=== PATIENT | female | born 1990 | race Caucasian/White ===

== ENCOUNTER 2018-04-21 15:13 | Outpatient (CLI) | payer MEDICAID ==
--- NOTE | 2018-04-21 16:58 | ULT ---
PELVIC ULTRASOUND 04/21/18 HISTORY: Positive , unknown dates. FINDINGS: The uterus measures 9.5 cm x 4.6 cm x 4.9 cm and does demonstrate a normal sonographic appearance. En dovaginal imaging does demonstrate a fluid collection within the endometrial canal. No gestational sa c or pole is visualized at this time to suggest an intrauterine gestation. Mean sac diameter me asures 0.5 cm which would be consistent with gestational age of 5 weeks and 2 days. Findings may be r elated to early intrauterine gestation with nonvisualization of pole and yolk sac. Followup ult rasound examination in one week is recommended. There is a Nabothian cyst seen in the cervix. The right ovary measures 2.8 cm x 2.5 cm x 2.1 cm with the left ovary measuring 2.7 cm x 1.4 cm x 1.9 cm. A 1.2 cm anechoic cystic structure is seen in the right ovary probably related to dominant folli cles/cysts. Doppler evaluation of each ovary with spectral analysis and color flow evaluation demonstrates arteri al flow in each ovary. Small amount of free fluid is seen in the cul-de-sac. IMPRESSION: 1. Fluid collection in the endometrial canal. No pole or yolk sac is visualized. This coul d potentially represent an early intrauterine gestation and mean sac diameter would correspond to a g estational age of 5 weeks and 2 days. Pseudogestational sac related to ectopic cannot be ex cluded based on sonographic evaluation. Follow up serial beta HCG levels as well as pelvic ultrasoun d are recommended. 2. Small amount of free fluid in the pelvis. POS: RYDER
== END 2018-04-21 15:14 | disposition home or self-care (01) ==
LOC: SCSULT 15:13
PROVIDERS: ATTEND Family Medicine
DX: Z34.90 Encounter for supervision of normal pregnancy, unspecified, unspecified trimester (principal); Z34.91 Encounter for supervision of normal pregnancy, unspecified, first trimester; Z3A.01 Less than 8 weeks gestation of pregnancy
CPT/HCPCS: 36415; 76856; 84144; 84443; 84702; 85025; 86762; 86780; 86850; 86900; 86901; 87086; 87340; 87389

== ENCOUNTER 2018-05-21 13:46 | Emergency (ER) | payer OTHER ==
[2018-05-21] MEDS ORDERED: Ondansetron HCl/PF 4 MG/2 ML Vial ONE (14:15)
[2018-05-21] MEDS ORDERED: Dicyclomine 20 MG TAB ONE (14:15)
[2018-05-21 14:18] LABS: #Basophils 0.1 thou/uL (0.0-0.2); #Eosinphils 0.2 thou/uL (0.0-0.7); #Lymphocytes 1.7 thou/uL (1.20-3.40); #Monocytes 0.8 thou/uL (0.11-0.59); #Neutrophils 4.6 thou/uL (1.40-6.50); %Basophils 0.7 % (0.0-1.0); %Eosinophils 3.3 % (0.0-10.0); %Lymphocytes 22.5 % (21.0-51.0); %Monocytes 10.8 % (0.0-10.0); %Neutrophils 62.6 % (42.0-75.0); Hemoglobin 13.1 g/dL (12.0-16.0); Mean Corpuscular HGB CONC 33.8 g/dL (32.0-36.0); Mean Corpuscular Hemoglobin 30.9 pg (27.0-31.0); Mean Corpuscular Volume 91.5 fL (78.0-98.0); Platelet Count 219 thou/uL (130-400); RBC Distribution Width 11.8 % (11.5-14.5); Red Blood Cell (RBC) Count 4.24 mill/uL (4.20-5.40); White Blood Cell (WBC) Count 7.4 thou/uL (4.8-10.8)
[2018-05-21 14:34] LABS: Bilirubin Negative (Negative); Blood, Urine Negative (Negative); Clarity CLOUDY (Clear); Glucose, Urine (Dipstick) Negative (Negative); Leukocyte Small (Negative); Nitrite Negative (Negative); Protein, Urine (Dipstick) Negative (Neg-Trace); Specific Gravity, Urine 1.013 (1.002-1.036); pH, Urine 6.5 (5.0-9.0)
[2018-05-21 14:35] LABS: Pregnancy Test - Urine (BHCG) POSITIVE (Negative); Pregu Control Background? CLEAR/WHITE (CLR/WHITE); Pregu Control Bar Appear? YES (CONTROL BAR); Specific Gravity 1.013 (1.002-1.036)
[2018-05-21 14:36] LABS: Bacteria/HPF 1+ HPF (None Seen); Hyaline Casts/LPF 0-3 HYALINE CAST LPF (0-3 Hyaline); Pathc Cast-AUWi Flag 0.58 (0-2.49); RBC/HPF 0-3 HPF (0-3)
[2018-05-21 14:41] LABS: ALT (SGPT) 39 U/L (8-55); AST (SGOT) 27 U/L (5-34); Albumin 3.8 g/dL (3.5-5.0); Alkaline Phosphatase 110 U/L (40-150); Anion Gap 13 mmol/L (10-20); BUN (Urea Nitrogen) 5 mg/dL (7.0-18.7); Bilirubin, Total 0.4 mg/dL (0.2-1.2); Calc. Creatinine Clearance 0 mL/min (70-130); Calcium 8.6 mg/dL (7.8-10.44); Carbon Dioxide 23 mmol/L (22-29); Chloride 105 mmol/L (98-107); Estimated GFR-MDRD Greater than 90; Globulin 3.2 g/dL (2.4-3.5); Glucose 108 mg/dL (70-105); Lipase 15 U/L (8-78); Potassium 3.5 mmol/L (3.5-5.1); Sodium 137 mmol/L (136-145)
--- NOTE | 2018-05-21 15:24 | ULT ---
RIGHT UPPER QUADRANT ULTRASOUND: Date: 05/21/18 HISTORY: Epigastric pain, nausea, and vomiting. FINDINGS: The liver, kidneys, gallbladder, and visualized portions of the pancreas (tail not satisfactorily vis ualized due to overlying bowel gas) appear normal. The common duct measures 2.0 mm in diameter. No fr ee fluid is seen in Morison's pouch. IMPRESSION: Unremarkable exam. POS: RYDER
== END 2018-05-21 15:08 | disposition home or self-care (01) ==
LOC: ERS 13:46
DX: R10.10 Upper abdominal pain, unspecified (principal); R11.2 Nausea with vomiting, unspecified; F41.9 Anxiety disorder, unspecified; F31.9 Bipolar disorder, unspecified; Z79.899 Other long term (current) drug therapy
CPT/HCPCS: 76705; 80053; 81003; 81015; 81025; 83690; 84702; 85025; 87086; 96361; 96374; J2405

== ENCOUNTER 2018-07-30 12:18 | Emergency (ER) | payer OTHER | END 2018-07-30 13:59 | disposition home or self-care (01) | LOC: ERS 12:18 | DX: O99.89 Other specified diseases and conditions complicating pregnancy, childbirth and the puerperium (principal); R09.81 Nasal congestion; O99.340 Other mental disorders complicating pregnancy, unspecified trimester; F31.9 Bipolar disorder, unspecified; F41.9 Anxiety disorder, unspecified; Z91.048 Other nonmedicinal substance allergy status | CPT/HCPCS: 99283 ==

== ENCOUNTER 2018-10-23 09:39 | Outpatient (CLI) | payer OTHER ==
--- NOTE | 2018-10-23 12:12 | ULT ---
ULTRASOUND ABDOMEN: HISTORY: Abdominal pain. COMPARISON: Gallbladder ultrasound 05/21/2018. FINDINGS: Visualized portion of the pancreas, aorta, and IVC unremarkable. Hepatic echotexture is normal. The echotexture of the liver is normal. No intrahepatic or extrahepatic biliary dilatation. The gal lbladder is normal. No pericholecystic fluid. The portal vein is patent with antegrade flow. The common bile duct measures 4 mm, normal. The live r measures 17.2 cm in length. The right kidney measures 10.9 x 4 x 4.9 cm without mass, hydronephros is, or abnormal calcifications. The left kidney measures 12.3 x 5.4 x 5.1 cm without mass, hydroneph rosis, or abnormal calcifications. The spleen measures 10.4 cm in length. IMPRESSION: Normal exam. POS: RYDER
== END 2018-10-23 09:40 | disposition home or self-care (01) ==
LOC: ULT 09:39
PROVIDERS: ATTEND Family Medicine
DX: R10.9 Unspecified abdominal pain (principal)
CPT/HCPCS: 36415; 76700; 80053; 82239; 83690; 85025

== ENCOUNTER 2018-10-29 07:53 | Day surgery (SDC) | payer OTHER ==
[2018-10-29 08:34] VITALS: BP 116/68; TEMP 98.1
[2018-10-29 08:36] VITALS: BMI 39.2
[2018-10-29] MEDS ORDERED: Mag-Al 1200 mg/1200 mg/30 ML UDCUP PO PRN (09:14)
--- NOTE | 2018-10-29 10:20 | PRG ---
DATE OF SERVICE: 10/29/2018 PRESENTING COMPLAINT: Heartburn, decreased movement at 32 weeks. HISTORY OF PRESENT ILLNESS: Ms. Schroeder is a 28-year-old 4, para 3, at 32 weeks by stated ALOK. She reports that she had decreased movement last night. She denies contractions. She denies rupture of membranes. She states she has had problems with reflux for the entire , it was somewhat worse last night. 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 The patient reports one was at 33 weeks' gestation and required corticosteroids, the others were term. She denies receiving [place] during this . She denies complications of this . Antepartum records not available. PAST MEDICAL HISTORY: Bipolar. PAST SURGICAL HISTORY: Shoulder. ALLERGIES: DENIES. MEDICATIONS: vitamins and Seroquel. SOCIAL HISTORY: Denies tobacco, alcohol, or IV drug abuse. FAMILY HISTORY: Noncontributory. REVIEW OF SYSTEMS: Noncontributory. PHYSICAL EXAMINATION: GENERAL: White female, resting comfortably, in no acute distress. VITAL SIGNS: Pulse 87, respirations 18, blood pressure 118/72, temperature 98.6. HEENT: Within normal limits. LUNGS: Clear to auscultation bilaterally. HEART: Regular rate and rhythm. ABDOMEN: Soft and nontender. There is no palpable mass and really no guarding. PELVIC: Vulva is without lesions externally. Vaginal exam is deferred. Fundal height is 32 cm. EXTREMITIES: No clubbing, cyanosis, or edema. MUSCULOSKELETAL: No CVA tenderness is noted. heart rate tracing was carried out for approximately 20 to 30 minutes which revealed a category 1 strip, positive accelerations, no decelerations, and positive movement was noted by the patient. IMPRESSION: 1. Gastroesophageal reflux in the 3rd trimester. 2. Decreased movement, now resolved. PLAN: 1. Maalox 30 mL p.o. x1. 2. The patient to follow up. Discussed PPI with Dr. Polanco in her office. 3. Discharge home. ER precautions. Job ID: [id number]
== END 2018-10-29 10:19 | disposition home or self-care (01) ==
LOC: L&D/OP 07:53
PROVIDERS: ATTEND Family Medicine
DX: O36.8130 Decreased fetal movements, third trimester, not applicable or unspecified (principal); O99.613 Diseases of the digestive system complicating pregnancy, third trimester; K21.9 Gastro-esophageal reflux disease without esophagitis; O99.343 Other mental disorders complicating pregnancy, third trimester; F31.9 Bipolar disorder, unspecified; Z3A.32 32 weeks gestation of pregnancy; Z79.899 Other long term (current) drug therapy
CPT/HCPCS: 99282

== ENCOUNTER 2018-11-17 22:58 | Day surgery (SDC) | payer OTHER ==
--- NOTE | 2018-11-17 23:07 | PDOC.FPROB ---
FMR OB H&P: HPI - History of Present Illness Chief Complaint: Contractions Indentification: 28 year old History of Present Illness: 28 year old at 34.6 wks by stated ALOK presents with contractions for the past few weeks. Patient states they have been fairly consistent during that time. She describes them as a tightening of her abdomen associated with vaginal pressure. Patient states the contractions got stronger today, which prompted her visit to L&D. Patient endorses urinary hesitancy and dysuria. She denies vaginal bleeding, vaginal discharge, or LoF. Patient denies fever or chills. She states she drinks about 4 water bottles per day. Primary Care Physician: Dr. 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 - Surgical History Sx History: Shoulder surgery - Social History Social History: Denies tobacco, alcohol, or drug use - Family History Family History: Noncontributory FMR OB H&P: Medications - Current Home Medications: Medication Instructions Recorded Confirmed Type Vitamin 1 tablet PO DAILY 10/29/18 11/17/18 History QUEtiapine Fumarate [Seroquel] 50 mg PO DAILY 10/29/18 11/17/18 History Allergies/Adverse Reactions: Allergies Allergy/AdvReac Type Severity Reaction Status Date / Time codeine Allergy Verified 11/17/18 23:20 FMR OB H&P: ROS - Review of Systems General: denies: fever/chills, weight/appetite/sleep changes Eyes: denies: vision changes, scotomas ENT: denies: nasal congestion, rhinorrhea, sore throat Cardiovascular: denies: chest pain, palpitation, edema Respiratory: denies: cough, congestion, shortness of breath Gastrointestinal: denies: abdominal pain, nausea, vomiting, diarrhea Genitourinary (Female): reports: dysuria, polyuria, hesitancy, contractions, vaginal pressure. denies: vaginal discharge, vaginal bleeding Musculoskeletal: denies: pain, stiffness Neurologic: denies: numbness, syncope, seizures Integumentary: denies: itching, rash Hematologic/Lymphatic: denies: prolonged or excessive bleeding Psychological: reports: depression. denies: anxiety FMR OB H&P: Vital Signs - Maternal Vital signs: BP 127/80 Pulse 83 Afebrile - Heart Tones Baseline: 140 Variability: moderate Acceleration: present Deceleration: absent Category: category 1 [place] contractions every: Irregular FMR OB H&P: Physical Exam - Physical Exam General: NAD, awake, alert and oriented HEENT: MMM, grossly normal vision Heart: RRR, pulses present, no edema General: CTAB, no respiratory distress Abdomen: soft, gravid, non-tender Musculoskeletal: pulses present, FROM in all four extremities Neurological: no tremor, no focal deficit Skin: no rash, capillary refill <2 seconds Lymphatic: no unusual bruising or bleeding Psychiatric: intact recent and remote memory, good judgement and insight - Pelvic Exam Vulva: normal hair distribution SVE: By nurse closed/50/-1 FMR OB H&P: A/P - Problem List (1) Intrauterine Status: Acute Code(s): Z34.90 - ENCNTR FOR SUPRVSN OF NORMAL , UNSP, UNSP TRIMESTER (2) Uterine contractions Status: Acute Code(s): DRF7326 - (3) Third trimester Status: Acute Code(s): Z34.93 - ENCNTR FOR SUPRVSN OF NORMAL PREG, UNSP, THIRD TRIMESTER Disposition: 28 year old at 34.6 wks presents with contractions 1. sIUP with contractions - at 34.6 wks - Will monitor FHT's; Category I strip - Cervical check: closed/50/-1 by nurse - UA pending - PO hydration - Irregular contractions with uterine irritability 2. Hx of PTD at 33 wks - IOL for oligohydramnios 3. Bipolar disorder - On Seroquel qhs Dispo: Pending results of UA and PO hydration. Cervix closed. Irregular contractions. Does not appear to be in labor at this time. Discussion: Date/Time: 11/17/18 5296 This H&P was discussed with Dr. Caldera who agrees with the above documentation and plan. Signature: Nathalie De La Rosa DO PGY-2 Addendum - Attending - Attending Attestation Date/Time: 11/19/18 0114 I personally evaluated the patient and discussed the management with Dr. De La Rosa I agree with the History, Examination, Assessment and Plan documented above with any addition or exceptions noted below.
[2018-11-17 23:26] VITALS: BP 127/80; TEMP 98; BMI 39.9
[2018-11-18 00:24] LABS: Bilirubin Negative (Negative); Blood, Urine Negative (Negative); Clarity CLEAR (Clear); Glucose, Urine (Dipstick) Negative (Negative); Leukocyte Negative (Negative); Nitrite Negative (Negative); Protein, Urine (Dipstick) Negative (Neg-Trace); Specific Gravity, Urine 1.027 (1.002-1.036); pH, Urine 6.5 (5.0-9.0)
[2018-11-18 00:26] LABS: Bacteria/HPF None Seen HPF (None Seen); Hyaline Casts/LPF 7-10 HYALINE CAST LPF (0-3 Hyaline); Pathc Cast-AUWi Flag 1.08 (0-2.49); RBC/HPF 0-3 HPF (0-3); Squamous Epithelial 0-3 HPF (0-3); WBC/HPF 0-3 HPF (0-3)
[2018-11-18 00:43] LABS: Renal Epithelial None Seen HPF (0-3); Transitional Epithelial NONE SEEN HPF (0-3)
[2018-11-18 00:49] LABS: Urine Culture Reflex No No
--- NOTE | 2018-11-18 01:02 | PDOC.EVN ---
Event Note - Event Note Event Note: 11/18/2018 a 1:00 AM UA negative. Uterine irritability has decreased since PO hydration. Encouraged patient to drink appx 64 oz of water per day. Patient mentioned she has reflux just prior to d/c. Advised patient she could take tums and follow with Dr. Polanco as previously discussed at prior visit to L&D for further treatment. Plan to d/ c patient home with return precautions. Nathalie De La Rosa, DO PGY-2
== END 2018-11-18 01:12 | disposition home or self-care (01) ==
LOC: L&D/OP 22:58
PROVIDERS: ATTEND Family Medicine
DX: O47.03 False labor before 37 completed weeks of gestation, third trimester (principal); O41.03X0 Oligohydramnios, third trimester, not applicable or unspecified; O99.343 Other mental disorders complicating pregnancy, third trimester; F31.9 Bipolar disorder, unspecified; Z3A.34 34 weeks gestation of pregnancy; Z79.899 Other long term (current) drug therapy
CPT/HCPCS: 51701; 81001; 99283

== ENCOUNTER 2018-12-18 05:30 | Inpatient (IN) | payer OTHER ==
[2018-12-18 06:05] VITALS: BMI 41.1
[2018-12-18] MEDS ORDERED: Acetaminophen 500 MG TAB PO PRN (06:21)
[2018-12-18] MEDS ORDERED: Butorphanol Tartrate 1 MG/ML VIAL SLOW IVP PRN (06:21)
[2018-12-18] MEDS ORDERED: NS w/ Oxytocin 10 units 500 ML IV SCH ×4 (06:30→07:30)
[2018-12-18] MEDS ORDERED: Lidocaine 1% (PF) 30 ML VIAL SC PRN ×2 (06:30→07:30)
[2018-12-18] MEDS ORDERED: Penicillin G Potassium 5 MILL.UNITS in Sodium Chloride 0.9% 100 ML IVPB SCH (06:30)
[2018-12-18] MEDS ORDERED: Ibuprofen 800 MG TAB PO PRN (06:30)
[2018-12-18] MEDS ORDERED: Misoprostol 200 MCG TAB RC PRN ×2 (06:30→07:30)
[2018-12-18] MEDS ORDERED: Methylergonovine 0.2 MG/ML VIAL IM PRN ×2 (06:30→07:30)
[2018-12-18] MEDS: Lactated Ringer's 1,000 ML IV SCH ×2 (06:51→08:46)
[2018-12-18 06:57] LABS: Hemoglobin 12.3 g/dL (12.0-16.0); Mean Corpuscular HGB CONC 33.8 g/dL (32.0-36.0); Mean Corpuscular Volume 88.6 fL (78.0-98.0); Mean Platelet Volume 10.7 fL (7.4-10.4); Platelet Count 192 thou/uL (130-400); RBC Distribution Width 12.7 % (11.5-14.5); White Blood Cell (WBC) Count 9.5 thou/uL (4.8-10.8)
[2018-12-18] MEDS ORDERED: Fentanyl 4 mcg/Bup 0.1% Cadd 100 ML ONE (07:28)
[2018-12-18] MEDS ORDERED: NS / Oxytocin 40 units/1000ml 1,000 ML IV SCH ×2 (07:30→14:00)
[2018-12-18 07:37] LABS: HBSAg Index 0.31 S/CO (0-0.99); Hep B Surf Ag Non-Reactive S/CO (NonReactive); Syphilis Antibody Nonreactive (Nonreactive); Syphilis Antibody Index 0.03 S/CO (<1.00 Non-Reactive)
[2018-12-18] MEDS ORDERED: Naloxone HCl 0.4 mg/ml Vial IVP PRN ×2 (08:00→08:07)
[2018-12-18] MEDS ORDERED: ePHEDrine/0.9% NaCl/PF SYRINGE 50 mg/10 ml SLOW IVP PRN (08:00)
[2018-12-18] MEDS ORDERED: Communication Order-Pharmacy FS SCH (08:00)
[2018-12-18] MEDS ORDERED: Ondansetron PF 4 MG/2 ML Vial IVP PRN (08:00)
[2018-12-18] MEDS ORDERED: Eucerin (Mineral Oil/Petrolatum,White) 30 gm Jar TOP PRN (08:07)
[2018-12-18] MEDS ORDERED: Lactated Ringer's 500 ML IV PRN (08:07)
[2018-12-18] MEDS ORDERED: diphenhydrAMINE 50 MG/ML VIAL IVP PRN (08:07)
[2018-12-18] MEDS ORDERED: Acetaminophen 325 MG TAB PO PRN (08:07)
[2018-12-18] MEDS ORDERED: Promethazine HCl 25 MG/ML VIAL IM PRN (08:07)
[2018-12-18] MEDS ORDERED: Fentanyl 4 mcg/Bupivacaine 0.1% Cassette 100 ML EPIDURAL SCH (08:15)
[2018-12-18] MEDS ORDERED: Penicillin G 2.5 MILL.units 2.5 MILL.UNITS in Premix Bag 1 BAG IVPB SCH (11:00)
[2018-12-18] MEDS ORDERED: HYDROcodone/Acetaminophen 5/325 mg Tablet PO PRN (13:54)
[2018-12-18] MEDS ORDERED: Lanolin Ointment 7 GM TUBE TOP PRN (13:54)
[2018-12-18] MEDS ORDERED: Preparation H Ointment 28 GM TUBE PR PRN (13:54)
[2018-12-18] MEDS ORDERED: Milk Of Magnesia 30 ML UDCUP PO PRN (13:54)
[2018-12-18] MEDS ORDERED: Bisacodyl 10 MG SUPP PR PRN (13:54)
[2018-12-18] MEDS: Ibuprofen 800 MG TAB PO SCH ×2 (14:58→22:04)
[2018-12-18] MEDS: Ferrous Sulfate 325 MG TAB PO SCH (17:31)
[2018-12-18] MEDS ORDERED: Ondansetron ODT 4 MG TAB PO PRN (18:14)
[2018-12-18] MEDS ORDERED: Ondansetron PF 4 MG/2 ML Vial SLOW IVP PRN (18:14)
--- NOTE | 2018-12-18 18:24 | OP ---
DATE OF PROCEDURE: 12/18/2018 DATE OF DELIVERY: 12/18/2018. PREOPERATIVE DIAGNOSES: Term intrauterine and elective induction of labor at term. POSTOPERATIVE DIAGNOSES: Term intrauterine and elective induction of labor at term. PROCEDURE PERFORMED: Normal spontaneous vaginal delivery. ANESTHESIA: Epidural. BRIEF DELIVERY SUMMARY: This is a 28-year-old G4, now P4, who presented for induction of labor. She received Pitocin this morning and responded very well. She progressed quickly to delivery to complete and pushing. She delivered a live female infant head away. Mouth and nares were bulb suctioned at the perineum. There was a loose nuchal cord x1; however, shoulders and body rapidly followed and so was unable to be reduced prior to delivery. The baby was then disentangled from the cord. 's Apgars were 8 at 1 minute and 9 at 5 minutes. Cord blood was collected and sent for analysis. Placenta delivered spontaneously and intact with a 3-vessel umbilical cord. Uterine fundus was firm following evacuation of the placenta. Cervix, vagina, and perineum were inspected for lacerations and there were none to be found. Mom and baby were left with the nurse in excellent condition. Mom is planning to bottle-feed. Job ID: [id number]
[2018-12-18] MEDS ORDERED: traMADol HCl 50 MG TAB PO PRN (21:19)
[2018-12-18] MEDS: Docusate Calcium (SURFAK) 240 MG CAP PO SCH (22:05)
[2018-12-19] MEDS: Ibuprofen 800 MG TAB PO SCH ×3 (05:35→21:17)
[2018-12-19] MEDS: Ferrous Sulfate 325 MG TAB PO SCH ×2 (07:29→17:10)
[2018-12-19] MEDS ORDERED: Adacel (T-DAP) 0.5 ML SYRINGE IM ONE (09:00)
[2018-12-19] MEDS ORDERED: Measles/Mumps/Rubella 10 MCG/0.5 ML VIAL SC ONE (09:00)
[2018-12-19] MEDS: Prenatal Vitamin 1 TAB PO SCH (09:20)
[2018-12-19] MEDS: Docusate Calcium (SURFAK) 240 MG CAP PO SCH ×2 (09:20→21:17)
--- NOTE | 2018-12-19 14:58 | PDOC.PP ---
Post Progress Note Post Day #: 1 Subjective: Doing well, PP day #1, feeling well. Bottlefeeding. PO intake tolerated: yes Flatus: yes Ambulation: yes Vital Signs (12 hours) Temp Pulse Resp BP Pulse Ox 12/19/18 11:46 97.8 F 80 20 122/75 12/19/18 08:00 97.6 F 76 20 131/73 97 12/19/18 05:30 97.6 F 92 20 116/77 Weight Weight 218 lb - Physical Examination General: NAD Cardiovascular: no m/r/g, RRR Respiratory: clear to auscultation bilaterally, non-labored breathing Abdominal: + bowel sounds, lochia, no distention, appropriately TTP Psychiatric: A&Ox3, normal affect Result Diagrams: 12/18/18 06:44 Additional Labs: Post Labs Blood Type A POSITIVE 12/18/18 06:44 Hep Bs Antigen Non-Reactive S/CO (NonReactive) 12/18/18 06:44 (1) Vaginal delivery Code(s): O80 - ENCOUNTER FOR FULL-TERM UNCOMPLICATED DELIVERY Status: Acute - Assessment/Plan Routine PP care D/C tomorrow
[2018-12-20] MEDS: Ibuprofen 800 MG TAB PO SCH (06:25)
[2018-12-20] MEDS: Ferrous Sulfate 325 MG TAB PO SCH (08:24)
--- NOTE | 2018-12-20 08:42 | PDOC.PP ---
Post Progress Note Post Day #: 2 Subjective: Doing well. Feeding improved. Lochia normal. PO intake tolerated: yes Flatus: yes Ambulation: yes Weight Weight 218 lb - Physical Examination General: NAD Cardiovascular: no m/r/g, RRR Respiratory: clear to auscultation bilaterally, non-labored breathing Abdominal: + bowel sounds, lochia, no distention, appropriately TTP Result Diagrams: 12/18/18 06:44 Additional Labs: Post Labs Blood Type A POSITIVE 12/18/18 06:44 Hep Bs Antigen Non-Reactive S/CO (NonReactive) 12/18/18 06:44 (1) Vaginal delivery Code(s): O80 - ENCOUNTER FOR FULL-TERM UNCOMPLICATED DELIVERY Status: Acute - Assessment/Plan Routine care D/C home F/U in 6 weeks
[2018-12-20 09:32] VITALS: BP 115/67; TEMP 98.2
[2018-12-20] MEDS: Prenatal Vitamin 1 TAB PO SCH (09:52)
[2018-12-20] MEDS: Docusate Calcium (SURFAK) 240 MG CAP PO SCH (09:53)
== END 2018-12-20 10:15 | disposition home or self-care (01) | DRG 807 ==
LOC: L&D 05:39 → 3SW 16:01
PROVIDERS: ADMIT Family Medicine; ATTEND Family Medicine
PROC: 10E0XZZ Delivery of Products of Conception, External Approach (ICD-10-PCS; principal; 2018-12-18)
PROC: 3E033VJ Introduction of Other Hormone into Peripheral Vein, Percutaneous Approach (ICD-10-PCS; 2018-12-18)
DX: O69.9XX0 Labor and delivery complicated by cord complication, unspecified, not applicable or unspecified (principal); Z37.0 Single live birth; Z3A.39 39 weeks gestation of pregnancy
CPT/HCPCS: 36415; 51702; 85027; 86780; 86850; 86900; 86901; 87340; J2001; J2405; J2540; J2590; J3490; J7050

== ENCOUNTER 2019-08-26 05:04 | Emergency (ER) | payer MEDICAID, OTHER ==
[2019-08-26] MEDS ORDERED: Ondansetron PF 4 MG/2 ML Vial ONE (05:19)
[2019-08-26 05:57] LABS: #Eosinphils 0.1 thou/uL (0.0-0.7); #Lymphocytes 0.5 thou/uL (1.20-3.40); #Monocytes 0.5 thou/uL (0.11-0.59); #Neutrophils 7.2 thou/uL (1.40-6.50); %Basophils 0.3 % (0.0-1.0); %Eosinophils 0.7 % (0.0-10.0); %Lymphocytes 5.8 % (21.0-51.0); %Monocytes 5.5 % (0.0-10.0); %Neutrophils 87.6 % (42.0-75.0); Hemoglobin 13.7 g/dL (12.0-16.0); Mean Corpuscular HGB CONC 33.7 g/dL (32.0-36.0); Mean Corpuscular Hemoglobin 29.9 pg (27.0-31.0); Mean Corpuscular Volume 88.7 fL (78.0-98.0); Mean Platelet Volume 9.7 fL (7.4-10.4); Platelet Count 186 thou/uL (130-400); RBC Distribution Width 12.3 % (11.5-14.5); Red Blood Cell (RBC) Count 4.59 mill/uL (4.20-5.40); White Blood Cell (WBC) Count 8.2 thou/uL (4.8-10.8)
[2019-08-26 06:20] LABS: ALT (SGPT) 20 U/L (8-55); AST (SGOT) 14 U/L (5-34); Albumin 3.8 g/dL (3.5-5.0); Alkaline Phosphatase 102 U/L (40-110); Anion Gap 15 mmol/L (10-20); BUN (Urea Nitrogen) 7 mg/dL (7.0-18.7); Bilirubin, Total 0.6 mg/dL (0.2-1.2); Calc. Creatinine Clearance 0 mL/min (70-130); Calcium 8.9 mg/dL (7.8-10.44); Carbon Dioxide 23 mmol/L (22-29); Chloride 103 mmol/L (98-107); Estimated GFR-MDRD Greater than 90; Globulin 3.3 g/dL (2.4-3.5); Glucose 115 mg/dL (70-105); Lipase 10 U/L (8-78); Potassium 3.9 mmol/L (3.5-5.1); Protein, Total 7.1 g/dL (6.0-8.3); Sodium 137 mmol/L (136-145)
[2019-08-26] MEDS ORDERED: Acetaminophen 500 MG TAB ONE (06:58)
[2019-08-26 07:17] LABS: Bacteria/HPF None Seen HPF (None Seen); Bilirubin Negative (Negative); Blood, Urine Negative (Negative); Clarity Clear (Clear); Glucose, Urine (Dipstick) Normal (Negative); Leukocyte 25 Leu/uL (Negative); Nitrite Negative (Negative); Protein, Urine (Dipstick) 30 mg/dL (Neg-Trace); RBC/HPF 0-3 HPF (0-3); Squamous Epithelial 0-3 HPF (0-3); Urobilinogen Normal mg/dL (Less than 2)
== END 2019-08-26 07:44 | disposition home or self-care (01) ==
LOC: ERS 05:04
DX: O21.9 Vomiting of pregnancy, unspecified (principal); O23.42 Unspecified infection of urinary tract in pregnancy, second trimester; R10.9 Unspecified abdominal pain; O99.342 Other mental disorders complicating pregnancy, second trimester; F31.9 Bipolar disorder, unspecified; Z3A.14 14 weeks gestation of pregnancy
CPT/HCPCS: 80053; 81003; 81015; 83690; 85025; 96361; 96374; J2405

== ENCOUNTER 2019-09-13 13:10 | Emergency (ER) | payer OTHER ==
[2019-09-13] MEDS ORDERED: Acetaminophen 500 MG TAB ONE (13:31)
== END 2019-09-13 14:25 | disposition home or self-care (01) ==
LOC: ERS 13:10
DX: O99.511 Diseases of the respiratory system complicating pregnancy, first trimester (principal); J06.9 Acute upper respiratory infection, unspecified; O99.341 Other mental disorders complicating pregnancy, first trimester; F31.9 Bipolar disorder, unspecified; F41.9 Anxiety disorder, unspecified; Z3A.18 18 weeks gestation of pregnancy
CPT/HCPCS: 87804; 99283

== ENCOUNTER 2019-09-15 09:18 | Emergency (ER) | payer OTHER ==
[2019-09-15] MEDS ORDERED: Acetaminophen 325 MG TAB ONE (11:05)
[2019-09-15] MEDS ORDERED: Ondansetron PF 4 MG/2 ML Vial ONE (11:05)
[2019-09-15 11:49] LABS: Bilirubin Negative (Negative); Blood, Urine Negative (Negative); Clarity Clear (Clear); Glucose, Urine (Dipstick) Normal (Negative); Leukocyte Negative Leu/uL (Negative); Nitrite Negative (Negative); Protein, Urine (Dipstick) Negative (Neg-Trace)
[2019-09-15 12:08] LABS: #Lymphocytes 0.8 thou/uL (1.20-3.40); #Monocytes 0.5 thou/uL (0.11-0.59); #Neutrophils 2.8 thou/uL (1.40-6.50); %Eosinophils 0.2 % (0.0-10.0); %Lymphocytes 19.8 % (21.0-51.0); %Monocytes 11.7 % (0.0-10.0); %Neutrophils 68.2 % (42.0-75.0); Hemoglobin 11.6 g/dL (12.0-16.0); Mean Corpuscular HGB CONC 33.6 g/dL (32.0-36.0); Mean Corpuscular Hemoglobin 30.5 pg (27.0-31.0); Mean Corpuscular Volume 90.6 fL (78.0-98.0); Mean Platelet Volume 10.3 fL (7.4-10.4); Platelet Count 122 thou/uL (130-400); RBC Distribution Width 12.5 % (11.5-14.5); Red Blood Cell (RBC) Count 3.82 mill/uL (4.20-5.40); White Blood Cell (WBC) Count 4.1 thou/uL (4.8-10.8)
[2019-09-15 12:27] LABS: Anion Gap 12 mmol/L (10-20); BUN (Urea Nitrogen) Less than 4 mg/dL (7.0-18.7); Calc. Creatinine Clearance 0 mL/min (70-130); Calcium 7.7 mg/dL (7.8-10.44); Carbon Dioxide 22 mmol/L (22-29); Chloride 105 mmol/L (98-107); Estimated GFR-MDRD Greater than 90; Glucose 79 mg/dL (70-105); Potassium 3.4 mmol/L (3.5-5.1); Sodium 136 mmol/L (136-145)
== END 2019-09-15 12:53 | disposition home or self-care (01) ==
LOC: ERS 09:18
DX: O99.512 Diseases of the respiratory system complicating pregnancy, second trimester (principal); J10.1 Influenza due to other identified influenza virus with other respiratory manifestations; O99.342 Other mental disorders complicating pregnancy, second trimester; F31.9 Bipolar disorder, unspecified; F41.9 Anxiety disorder, unspecified; Z3A.18 18 weeks gestation of pregnancy
CPT/HCPCS: 36415; 80048; 81003; 85025; 87081; 87430; 87804; 96361; 96374; J2405

== ENCOUNTER 2020-02-05 16:00 | Outpatient (CLI) | payer OTHER ==
[2020-02-06 12:48] LABS: SARS-CoV-2 MS2 Positive; SARS-CoV-2 N Gene Negative; SARS-CoV-2 S Gene Negative; SARS-CoV-2 orf1ab Negative
== END 2020-02-05 16:01 | disposition home or self-care (01) ==
LOC: SCSLAB 16:00
PROVIDERS: ATTEND Family Medicine
DX: Z11.59 Encounter for screening for other viral diseases (principal)
CPT/HCPCS: 87635; U0003

== ENCOUNTER 2020-02-08 05:30 | Inpatient (IN) | payer OTHER ==
[2020-02-08] MEDS ORDERED: Lidocaine 1% (PF) 30 ML VIAL SC PRN (06:22)
[2020-02-08] MEDS ORDERED: hydrALAZINE 20 MG/ML VIAL SLOW IVP PRN ×2 (06:22→15:03)
[2020-02-08] MEDS ORDERED: Ibuprofen 800 MG TAB PO PRN (06:22)
[2020-02-08] MEDS ORDERED: Ondansetron PF 4 MG/2 ML Vial IVP PRN ×2 (06:22→10:56)
[2020-02-08] MEDS ORDERED: NS / Oxytocin 40 units/1000ml 1,000 ML IV PRN (06:22)
[2020-02-08 06:25] VITALS: BMI 38.5
[2020-02-08] MEDS ORDERED: Lactated Ringer's 1,000 ML IV SCH (06:30)
[2020-02-08] MEDS ORDERED: NS w/ Oxytocin 10 units 500 ML IV SCH (06:30)
[2020-02-08 06:43] LABS: Hemoglobin 11.6 g/dL (12.0-16.0); Mean Corpuscular HGB CONC 33.6 g/dL (32.0-36.0); Mean Corpuscular Hemoglobin 28.7 pg (27.0-31.0); Mean Corpuscular Volume 85.3 fL (78.0-98.0); Mean Platelet Volume 11.6 fL (7.4-10.4); Platelet Count 153 thou/uL (130-400); RBC Distribution Width 13.4 % (11.5-14.5); Red Blood Cell (RBC) Count 4.06 mill/uL (4.20-5.40)
[2020-02-08] MEDS: Lactated Ringer's 1,000 ML IV SCH ×2 (07:20→10:17)
[2020-02-08 07:22] LABS: HBSAg Index 0.16 S/CO (0-0.99); Hep B Surf Ag Non-Reactive S/CO (NonReactive); Syphilis Antibody Nonreactive (Nonreactive); Syphilis Antibody Index 0.03 S/CO (<1.00 Non-Reactive)
[2020-02-08] MEDS ORDERED: Fentanyl 4 mcg/Bup 0.1% Cadd 100 ML ONE (09:07)
[2020-02-08] MEDS ORDERED: Bupivacaine 0.25% HCL 30 ML VIAL ONE (09:08)
[2020-02-08] MEDS ORDERED: Naloxone HCl 0.4 mg/ml Vial IVP PRN ×2 (10:56)
[2020-02-08] MEDS ORDERED: Lactated Ringer's 500 ML IV PRN (10:56)
[2020-02-08] MEDS ORDERED: Acetaminophen 325 MG TAB PO PRN (10:56)
[2020-02-08] MEDS ORDERED: Promethazine HCl 25 MG/ML VIAL IM PRN (10:56)
[2020-02-08] MEDS ORDERED: diphenhydrAMINE 50 MG/ML VIAL IVP PRN (10:56)
[2020-02-08] MEDS ORDERED: EPHEDRINE 25 MG/5 ML SYRINGE SLOW IVP PRN (10:56)
[2020-02-08] MEDS ORDERED: Communication Order-Pharmacy FS PRN (11:00)
[2020-02-08] MEDS ORDERED: Fentanyl 4 mcg/Bupivacaine 0.1% Cassette 100 ML EPIDURAL SCH (11:00)
--- NOTE | 2020-02-08 12:32 | PDOC.EVN ---
Event Note - Event Note Event Note: At bedside to evaluate patient. She is comfortable after epidural. SVE 5/80/-1, AROM with clear fluid. Tolerated well. No complications. Head well applied. FSE placed due to difficulty tracing baby when mom moving in the bed. FHT category II. Moderate variability, no accelerations, occasional variable decelerations. Repositioned in bed. Continue to monitor. Anticipate . Other labors have been fast.
[2020-02-08] MEDS ORDERED: NS / Oxytocin 40 units/1000ml 1,000 ML ONE (13:02)
[2020-02-08] MEDS ORDERED: Lidocaine 1% (PF) 30 ML VIAL ONE (13:02)
[2020-02-08] MEDS ORDERED: NS / Oxytocin 40 units/1000ml 1,000 ML IV SCH (15:03)
[2020-02-08] MEDS ORDERED: Bisacodyl 10 MG SUPP PR PRN (15:03)
[2020-02-08] MEDS ORDERED: Milk Of Magnesia 30 ML UDCUP PO PRN (15:03)
[2020-02-08] MEDS ORDERED: Benzocaine-Menthol 82.5 ML CAN TOP PRN (15:03)
[2020-02-08] MEDS: Ferrous Sulfate 325 MG TAB PO SCH (16:49)
[2020-02-08] MEDS ORDERED: Ondansetron ODT 4 MG TAB PO PRN (17:19)
[2020-02-08] MEDS: Acetaminophen 325 MG TAB PO PRN (17:28)
[2020-02-08] MEDS: Ibuprofen 800 MG TAB PO SCH (22:43)
[2020-02-08] MEDS: Docusate Calcium (SURFAK) 240 MG CAP PO SCH (22:43)
[2020-02-09] MEDS: Ibuprofen 800 MG TAB PO SCH ×2 (05:57→12:59)
--- NOTE | 2020-02-09 06:43 | PDOC.OPDEL ---
OB Operative/Delivery Note Delivery Dr/Surgeon: Collin Pre-Delivery Diagnosis: elective induction Procedure/Post Delivery Dx: spontaneous vaginal delivery (Head OA, mouth and nares suctioned, no nuchal cord, shoulders and body easily followed, baby to mother's chest, cord clamped and cut.) Weeks gestation: 39 Anesthesia: epidural - Findings A Sex: male - 1 min: 9 - 5 min: 9 - Additional Findings/Plan Placenta delivered: spontaneous (3 vessel cord) Repaired Obstetrical Laceration: none Estimated blood loss: 75 ml Post delivery plan: routine recovery
--- NOTE | 2020-02-09 06:44 | PDOC.PP ---
Post Progress Note Post Day #: 1 Subjective: Doing well, no complaints, bottle feeding, pain is controlled, lochia normal PO intake tolerated: yes Flatus: yes Ambulation: yes Vital Signs (12 hours) Temp Pulse Resp BP Pulse Ox 02/08/20 23:55 98.0 F 75 16 117/79 99 02/08/20 20:18 97.8 F 74 16 103/56 L 96 Weight Weight 204 lb - Physical Examination General: NAD Cardiovascular: no m/r/g Respiratory: clear to auscultation bilaterally Abdominal: + bowel sounds Extremities: negative homans (B) Neurological: no gross focal deficits Psychiatric: A&Ox3 Result Diagrams: 02/08/20 06:32 Additional Labs: Post Labs Blood Type A POSITIVE 02/08/20 06:32 Hep Bs Antigen Non-Reactive S/CO (NonReactive) 02/08/20 06:32 (1) Vaginal delivery Code(s): O80 - ENCOUNTER FOR FULL-TERM UNCOMPLICATED DELIVERY Status: Acute - Assessment/Plan Routine PP care D/C home this afternoon F/U in 6 weeks with me
[2020-02-09] MEDS: Ferrous Sulfate 325 MG TAB PO SCH ×2 (07:18→10:56)
[2020-02-09] MEDS: Docusate Calcium (SURFAK) 240 MG CAP PO SCH (08:21)
[2020-02-09 08:26] VITALS: TEMP 97.7
[2020-02-09] MEDS ORDERED: Measles/Mumps/Rubella 10 MCG/0.5 ML VIAL SC ONE (09:00)
[2020-02-09] MEDS ORDERED: Adacel (T-DAP) 0.5 ML SYRINGE IM ONE (09:00)
[2020-02-09] MEDS: Acetaminophen 325 MG TAB PO PRN (12:09)
[2020-02-09 12:34] VITALS: BP 126/78
== END 2020-02-09 15:20 | disposition home or self-care (01) | DRG 807 ==
LOC: L&D 05:43 → 3SW 16:11
PROVIDERS: ADMIT Family Medicine; ATTEND Family Medicine
PROC: 10E0XZZ Delivery of Products of Conception, External Approach (ICD-10-PCS; principal; 2020-02-08)
PROC: 10907ZC Drainage of Amniotic Fluid, Therapeutic from Products of Conception, Via Natural or Artificial Opening (ICD-10-PCS; 2020-02-08)
PROC: 3E033VJ Introduction of Other Hormone into Peripheral Vein, Percutaneous Approach (ICD-10-PCS; 2020-02-08)
DX: O76 Abnormality in fetal heart rate and rhythm complicating labor and delivery (principal); Z37.0 Single live birth; Z3A.39 39 weeks gestation of pregnancy; O99.344 Other mental disorders complicating childbirth; F31.9 Bipolar disorder, unspecified; Z79.899 Other long term (current) drug therapy
CPT/HCPCS: 36415; 51702; 85027; 86780; 86850; 86900; 86901; 87340; J2001; J2590; Q0162; S0020

== ENCOUNTER 2021-02-16 12:43 | Outpatient (CLI) | payer OTHER | END 2021-02-16 12:44 | disposition home or self-care (01) | LOC: BICRAD 12:43 | PROVIDERS: ATTEND Nurse Practitioner Family | DX: R20.2 Paresthesia of skin (principal) ==

== ENCOUNTER 2022-02-16 11:19 | Emergency (ER) | payer OTHER | END 2022-02-16 12:07 | disposition home or self-care (01) | LOC: ERS 11:19 | DX: M54.42 Lumbago with sciatica, left side (principal); M62.830 Muscle spasm of back | CPT/HCPCS: 99283 ==

== ENCOUNTER 2023-06-26 19:26 | Emergency (ER) | payer OTHER ==
[2023-06-26] MEDS ORDERED: predniSONE 20 MG TAB ONE (20:41)
[2023-06-26] MEDS ORDERED: Ketorolac Tromethamine 30 MG/ML VIAL ONE (20:41)
== END 2023-06-26 21:00 | disposition home or self-care (01) ==
LOC: ERS 19:26
DX: M25.552 Pain in left hip (principal)
CPT/HCPCS: 96372; J1885; J7512

== ENCOUNTER 2024-09-07 18:22 | Emergency (ER) | payer OTHER ==
[2024-09-07 21:22] LABS: Bacteria/HPF None Seen HPF (None Seen); Bilirubin Negative (Negative); Blood, Urine Negative (Negative); CAUTI Indications for Culture Alt mental st,lethar; Clarity Clear (Clear); Glucose, Urine (Dipstick) Normal (Negative); Ketone, Urine Negative (Negative); Leukocyte Negative Leu/uL (Negative); Nitrite Negative (Negative); Protein, Urine (Dipstick) 10 mg/dL (Neg-Trace); RBC/HPF 0-3 HPF (0-3); Specific Gravity, Urine 1.034 (1.002-1.036); Squamous Epithelial 0-3 HPF (0-3); WBC/HPF 0-3 HPF (0-3); pH, Urine 6.5 (5.0-9.0)
[2024-09-07 21:23] LABS: Urine Culture Reflex No No
[2024-09-07 21:29] LABS: Amphetamine Not Detected (NotDetected); Barbiturates Screen Not Detected (NotDetected); Benzodiazepine Screen Not Detected (NotDetected); Cocaine Metabolite Screen Not Detected (NotDetected); Methadone Not Detected (NotDetected); Methamphetamine Not Detected (NotDetected); Opiate Screen Not Detected (NotDetected); Oxycodone Screen Not Detected (NotDetected); Phencyclidine (PCP) Not Detected (NotDetected); THC/Cannabinoid Screen Not Detected (NotDetected); Tricyclic Screen Not Detected (NotDetected)
[2024-09-07] MEDS ORDERED: diphenhydrAMINE 50 MG/ML VIAL ONE (22:13)
[2024-09-07] MEDS ORDERED: Metoclopramide HCl 10 MG (2 mL) VIAL ONE (22:13)
[2024-09-07 23:11] LABS: #Basophils Less than 0.03 10x3/uL (0.0-0.2); %Basophils 0.2 % (0.0-1.0); %Eosinophils 1.5 % (0.0-10.0); %Lymphocytes 30.5 % (21.0-51.0); %Monocytes 8.7 % (0.0-10.0); %Neutrophils 58.2 % (42.0-75.0); Hematocrit 35.7 % (36.0-47.0); Hemoglobin 11.6 g/dL (12.0-16.0); Mean Corpuscular HGB CONC 32.5 g/dL (32.0-36.0); Mean Corpuscular Hemoglobin 28.9 pg (27.0-31.0); Mean Platelet Volume 10.8 fL (7.4-10.4); Platelet Count 296 10x3/uL (130-400); RBC Distribution Width 14.5 % (11.5-14.5); Red Blood Cell (RBC) Count 4.01 mill/uL (4.20-5.40)
[2024-09-07 23:19] LABS: BHCG - Serum Negative (NEGATIVE); Pregs Control Background? CLEAR/WHITE (CLR/WHITE); Pregs Control Bar Appear? YES (CONTROL BAR)
[2024-09-07 23:25] LABS: Acetaminophen Less than 10 mcg/mL (Less than 10); Alcohol Less than 10.0 mg/dL (Less than 10); Salicylate Less than 8.0 mg/dL (Less than 8.0)
[2024-09-07 23:26] LABS: ALT (SGPT) 36 U/L (8-55); AST (SGOT) 13 U/L (5-34); Albumin 3.1 g/dL (3.5-5.0); Alkaline Phosphatase 92 U/L (40-110); Anion Gap 11 mmol/L (10-20); BUN (Urea Nitrogen) 14 mg/dL (7.0-18.7); Bilirubin, Total 0.3 mg/dL (0.2-1.2); Calc. Creatinine Clearance 0 mL/min (70-130); Calcium 8.3 mg/dL (7.8-10.44); Carbon Dioxide 27 mmol/L (22-29); Chloride 104 mmol/L (98-107); Estimated GFR 120; Glucose 135 mg/dL (70-105); Potassium 3.7 mmol/L (3.5-5.1); Protein, Total 6.1 g/dL (6.0-8.3); Sodium 138 mmol/L (136-145)
== END 2024-09-08 00:45 | disposition home or self-care (01) ==
LOC: ERS 18:22
DX: R20.2 Paresthesia of skin (principal)
CPT/HCPCS: 36415; 70450; 71045; 80053; 80306; 80307; 81001; 84703; 85025; 93005; 96374; 96375; J1200; J2765

== ENCOUNTER 2025-03-17 16:50 | Inpatient (IN) | payer OTHER ==
[~2025-03-17 16:50] MED LIST: Iopamidol 370 76% 100 ML VIAL ONE
[2025-03-17 17:27] LABS: #Basophils 0.03 10x3/uL (0.0-0.2); #Eosinophils 0.17 10x3/uL (0.0-0.7); #Monocytes 0.57 10x3/uL (0.11-0.59); #Neutrophils 3.49 10x3/uL (1.40-6.50); %Basophils 0.5 % (0.0-1.0); %Eosinophils 2.8 % (0.0-10.0); %Lymphocytes 28.4 % (21.0-51.0); %Monocytes 9.5 % (0.0-10.0); %Neutrophils 58.5 % (42.0-75.0); Hematocrit 35.5 % (36.0-47.0); Hemoglobin 11.4 g/dL (12.0-16.0); Mean Corpuscular Hemoglobin 26.0 pg (27.0-31.0); Mean Corpuscular Volume 80.9 fL (78.0-98.0); Platelet Count 287 10x3/uL (130-400); Red Blood Cell (RBC) Count 4.39 mill/uL (4.20-5.40); White Blood Cell (WBC) Count 5.98 10x3/uL (4.8-10.8)
[2025-03-17 17:39] LABS: BHCG - Serum Negative (NEGATIVE); Pregs Control Background? CLEAR/WHITE (CLR/WHITE); Pregs Control Bar Appear? YES (CONTROL BAR)
[2025-03-17 17:40] LABS: INR-International Normal Ratio 1.0; Prothrombin Time 13.0 sec (12.0-14.7)
[2025-03-17 17:41] LABS: PTT 29.8 sec (22.9-36.1)
[2025-03-17 17:51] LABS: ALT (SGPT) 18 U/L (Less than 34); AST (SGOT) 22 U/L (11-34); Albumin 3.7 g/dL (3.1-4.5); Alkaline Phosphatase 161 U/L (40-110); Anion Gap 12 mmol/L (10-20); BUN (Urea Nitrogen) 11 mg/dL (7.0-18.7); Bilirubin, Total 0.3 mg/dL (0.3-1.2); Calc. Creatinine Clearance 0 mL/min (70-130); Calcium 8.7 mg/dL (7.8-10.44); Carbon Dioxide 26 mmol/L (22-29); Chloride 107 mmol/L (98-107); Globulin 3.3 g/dL (2.4-3.5); Glucose 102 mg/dL (70-105); Lipase 24 U/L (8-78); Magnesium 1.8 mg/dL (1.6-2.6); Potassium 3.9 mmol/L (3.5-5.1); Sodium 141 mmol/L (136-145)
[2025-03-17 17:54] LABS: Troponin I Less than 0.010 ng/mL (< 0.028)
[2025-03-17 19:03] LABS: Bacteria/HPF None Seen HPF (None Seen); CAUTI Indications for Culture Pelvic or flank pain; Glucose, Urine (Dipstick) Normal (Negative); Leukocyte 25 Leu/uL (Negative); Protein, Urine (Dipstick) Negative (Neg-Trace); RBC/HPF 0-3 HPF (0-3)
[2025-03-17 19:07] LABS: Specific Gravity, Urine Greater than 1.050 (1.002-1.036)
[2025-03-17 19:08] LABS: Urine Culture Reflex No No
[2025-03-17] MEDS: Acetaminophen 325 MG TAB PO PRN (21:51)
[2025-03-17 22:14] VITALS: BMI 45.1
[2025-03-17] MEDS: Fioricet 325/50/40 mg Tablet PO PRN (23:17)
[2025-03-18] MEDS: Enoxaparin 40 MG (0.4 mL) SYRINGE SC SCH (08:49)
[2025-03-18] MEDS: Pantoprazole 40 MG DR.TAB PO SCH (08:50)
[2025-03-18] MEDS: lamoTRIgine 25 MG TAB PO SCH (08:50)
[2025-03-18] MEDS: ALPRAZolam 0.5 MG TAB PO SCH (08:50)
[2025-03-18] MEDS: Propranolol 10 MG TAB PO SCH (08:50)
[2025-03-18] MEDS: D5 1/2 NS w/20 mEq KCL 1,000 ML IV SCH (12:37)
[2025-03-18] MEDS: diphenhydrAMINE 50 MG/ML VIAL IVP SCH (17:24)
[2025-03-19 12:22] VITALS: BP 99/68; TEMP 98.3
== END 2025-03-19 18:16 | disposition home or self-care (01) | DRG 103 ==
LOC: ERS 16:50 → PCU 20:16 → OBSVTOIN 03-18 09:00
PROVIDERS: ADMIT Internal Medicine; ATTEND Family Medicine
DX: G43.109 Migraine with aura, not intractable, without status migrainosus (principal); Z68.41 Body mass index [BMI] 40.0-44.9, adult; F41.9 Anxiety disorder, unspecified; F31.9 Bipolar disorder, unspecified; Z88.5 Allergy status to narcotic agent; Z90.49 Acquired absence of other specified parts of digestive tract; Z98.890 Other specified postprocedural states; Z98.51 Tubal ligation status; Z71.3 Dietary counseling and surveillance
CPT/HCPCS: 70496; 70498; 70551; 71045; 72141; 80053; 81001; 83690; 83735; 83880; 84443; 84484; 84703; 85025; 85610; 85730; 93005; 96372; G0378; J0780; J1200; J1650; J3480; Q9967

== ENCOUNTER 2025-07-03 11:57 | Emergency (ER) | payer OTHER ==
[~2025-07-03 11:57] MED LIST changes: -Iopamidol 370 76% 100 ML VIAL ONE; +Iopamidol-370 76% 500 ML MDV (1 ML CHARGE) ONE
[2025-07-03 13:38] LABS: #Basophils Less than 0.03 10x3/uL (0.0-0.2); #Eosinophils 0.11 10x3/uL (0.0-0.7); #Monocytes 0.54 10x3/uL (0.11-0.59); #Neutrophils 3.40 10x3/uL (1.40-6.50); %Basophils 0.4 % (0.0-1.0); %Eosinophils 1.9 % (0.0-10.0); %Lymphocytes 28.0 % (21.0-51.0); %Monocytes 9.5 % (0.0-10.0); %Neutrophils 60.0 % (42.0-75.0); Hematocrit 35.8 % (36.0-47.0); Hemoglobin 11.3 g/dL (12.0-16.0); Mean Corpuscular Hemoglobin 26.4 pg (27.0-31.0); Mean Corpuscular Volume 83.6 fL (78.0-98.0); Platelet Count 274 10x3/uL (130-400); Red Blood Cell (RBC) Count 4.28 mill/uL (4.20-5.40); White Blood Cell (WBC) Count 5.67 10x3/uL (4.8-10.8)
[2025-07-03 13:47] LABS: BHCG - Serum Negative (NEGATIVE); Pregs Control Background? CLEAR/WHITE (CLR/WHITE); Pregs Control Bar Appear? YES (CONTROL BAR)
[2025-07-03 13:50] LABS: CRP, High Sensitivity at Bryan 0.54 mg/dL (< or = 0.5)
[2025-07-03 13:51] LABS: ALT (SGPT) 18 U/L (Less than 34); AST (SGOT) 20 U/L (11-34); Albumin 3.6 g/dL (3.1-4.5); Alkaline Phosphatase 128 U/L (40-110); Anion Gap 12 mmol/L (10-20); BUN (Urea Nitrogen) 8 mg/dL (7.0-18.7); Bilirubin, Total 0.4 mg/dL (0.3-1.2); Calc. Creatinine Clearance 0 mL/min (70-130); Calcium 8.7 mg/dL (7.8-10.44); Carbon Dioxide 27 mmol/L (22-29); Chloride 104 mmol/L (98-107); Globulin 2.9 g/dL (2.4-3.5); Glucose 98 mg/dL (70-105); Potassium 3.8 mmol/L (3.5-5.1); Sodium 139 mmol/L (136-145)
== END 2025-07-03 15:47 | disposition home or self-care (01) ==
LOC: ERS 11:57
DX: J02.9 Acute pharyngitis, unspecified (principal); Z86.73 Personal history of transient ischemic attack (TIA), and cerebral infarction without residual deficits; Z79.02 Long term (current) use of antithrombotics/antiplatelets
CPT/HCPCS: 70491; 80053; 84703; 85025; 86141; 87081; 87430; 96372; J1100